=== PATIENT | male | born 2000 | race Caucasian/White ===

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

== ENCOUNTER 2019-02-09 20:04 | Emergency (ER) | payer MEDICAID ==
[~2019-02-09] VITALS: Ht 185 cm; Wt 90.0 kg
[~2019-02-09 20:04] MED LIST changes: -CYPR4TAB; +CYPR4TAB41; -OXCA150T; +OXCA150T18
--- NOTE | 2019-02-09 20:12 | ED Chest Pain ---
General Stated Complaint: SOB,CHEST PAIN Source: patient Exam Limitations: no limitations History of Present Illness Date Seen by Provider: Feb 09, 2019 Time Seen by Provider: 20:10 Initial Comments To ER with sudden onset left-sided chest pain shortness of breath that began prior to arrival while rossy his girlfriend's car, he was driving. He was seen by urgent care last week and diagnosed with asthma exacerbation given some pills which may or may not have been prednisone and an inhaler. Inhaler hasn't helped, he states he feels very anxious at this time. Timing/Duration: changing over time Severity/Quality: moderate Location: other (left sternal border fifth intercostal space) Radiation: no radiation ASA po MOLDER CLOSED MOLDS: No NTG SL MOLDER CLOSED MOLDS: No Associated Symptoms: shortness of breath Allergies and Home Medications Allergies Coded Allergies: No Known Drug Allergies (Unverified , 03/07/14) Home Medications Amoxicillin/Potassium Clav 1 Each Tablet, 1 EACH PO BID Prescribed by: BENITEZ DALAL on 03/07/172345 Citalopram Hydrobromide 40 Mg Tablet, 1 TAB PO DAILY, (Reported) Codeine Phos/Acetaminophen 1 Tab Tablet, 1 TAB PO Q6H PRN for PAIN Prescribed by: ISAIAS WESTON on 03/07/142126 Fluticasone Propionate 9.9 Ml Knapp.susp, 2 SPRAYS NS BID Prescribed by: BENITEZ DALAL on 03/07/172345 Methylphenidate Hcl 20 Mg Tablet.sa, 3 TAB PO DAILY, (Reported) Methylprednisolone 4 Mg Tab.ds.pk, 4 MG PO UD Prescribed by: BENITEZ DALAL on 03/07/172345 Quetiapine Fumarate 50 Mg Tablet, 1-3 TAB PO HS, (Reported) Patient Home Medication List Home Medication List Reviewed: Yes Review of Systems Review of Systems Constitutional: see HPI EENTM: No Symptoms Reported Respiratory: See HPI, Shortness of Air Cardiovascular: See HPI, Chest Pain Gastrointestinal: No Symptoms Reported Genitourinary: No Symptoms Reported Musculoskeletal: no symptoms reported Skin: no symptoms reported Psychiatric/Neurological: No Symptoms Reported Endocrine: No Symptoms Reported Past Adqpnel-Zyakrf-Pwtqcr Hx Patient Social History Type Used: Cigarettes, Electronic/Vapor 2nd Hand Smoke Exposure: No Recent Foreign Travel: No Contact w/Someone Who Travel: No Recent Hopitalizations: No Immunizations Up To Date Tetanus Booster (TDap): Unknown Seasonal Allergies Seasonal Allergies: No Past Medical History Surgeries: Yes (L HAND) Orthopedic Respiratory: Yes Asthma Cardiac: No Neurological: No Genitourinary: No Gastrointestinal: No Musculoskeletal: No Endocrine: No HEENT: No Cancer: No Psychosocial: Yes ADD/ADHD, Anxiety, Depression Integumentary: No Blood Disorders: No Physical Exam Vital Signs Vital Signs - First Documented 02/09/19 20:05 Temp 37.1 Pulse 103 Resp 20 B/P (MAP) 159/93 (115) Pulse Ox 100 O2 Delivery Room Air Capillary Refill : Height, Weight, BMI Height: 6'1.00" Weight: 190lbs. oz. 86.134251os; 21.09 BMI Method:Stated General Appearance: No Apparent Distress, WD/WN, Anxious (tachypnea with pursed lip breathing on exhalation, anxious appearing but in no distress vital signs stable lungs are clear) HEENT: PERRL/EOMI, TMs Normal Respiratory: No Accessory Muscle Use, No Respiratory Distress Cardiovascular: Regular Rate, Rhythm, Normal Peripheral Pulses Gastrointestinal: Normal Bowel Sounds, Non Tender, Soft Extremity: Normal Capillary Refill, Normal Inspection Neurologic/Psychiatric: Alert, Oriented x3 Skin: Normal Color, Warm/Dry Progress/Results/Core Measures Results/Orders Lab Results Laboratory Tests Test 02/09/19 20:11 Range/Units White Blood Count 10.3 4.3-11.0 10^3/uL Red Blood Count 5.37 4.35-5.85 10^6/uL Hemoglobin 15.5 13.3-17.7 G/DL Hematocrit 43 40-54 % Mean Corpuscular Volume 79 L 80-99 FL Mean Corpuscular Hemoglobin 29 25-34 PG Mean Corpuscular Hemoglobin Concent 37 H 32-36 G/DL Red Cell Distribution Width 13.0 10.0-14.5 % Platelet Count 293 130-400 10^3/uL Mean Platelet Volume 9.4 7.4-10.4 FL Neutrophils (%) (Auto) 42 42-75 % Lymphocytes (%) (Auto) 48 H 12-44 % Monocytes (%) (Auto) 9 0-12 % Eosinophils (%) (Auto) 1 0-10 % Basophils (%) (Auto) 0 0-10 % Neutrophils # (Auto) 4.3 1.8-7.8 X 10^3 Lymphocytes # (Auto) 4.9 H 1.0-4.0 X 10^3 Monocytes # (Auto) 0.9 0.0-1.0 X 10^3 Eosinophils # (Auto) 0.1 0.0-0.3 10^3/uL Basophils # (Auto) 0.0 0.0-0.1 10^3/uL D-Dimer 0.44 0.00-0.49 UG/ML Sodium Level 142 135-145 MMOL/L Potassium Level 3.0 L 3.6-5.0 MMOL/L Chloride Level 104 98-107 MMOL/L Carbon Dioxide Level 26 21-32 MMOL/L Anion Gap 12 5-14 MMOL/L Blood Urea Nitrogen 14 7-18 MG/DL Creatinine 1.19 0.60-1.30 MG/DL Estimat Glomerular Filtration Rate > 60 BUN/Creatinine Ratio 12 Glucose Level 72 70-105 MG/DL Calcium Level 9.8 8.5-10.1 MG/DL Corrected Calcium 8.5-10.1 MG/DL Total Bilirubin 0.3 0.1-1.0 MG/DL Aspartate Amino Transf (AST/SGOT) 22 5-34 U/L Alanine Aminotransferase (ALT/SGPT) 39 0-55 U/L Alkaline Phosphatase 69 40-136 U/L Troponin I < 0.028 <0.028 NG/ML Total Protein 8.1 6.4-8.2 GM/DL Albumin 4.9 H 3.2-4.5 GM/DL My Orders Orders - ISAIAS WESTON APRN Fibrin Degradation Products (02/09/19 20:09) Troponin I (02/09/19 20:09) Cbc With Automated Diff (02/09/19 20:09) Comprehensive Metabolic Panel (02/09/19 20:09) Ekg Tracing (02/09/19 20:09) Chest 1 View, Ap/Pa Only (02/09/19 20:09) Ed Iv/Invasive Line Start (02/09/19 20:09) Lorazepam Injection (Ativan Injection) (02/09/19 20:15) Ketorolac Injection (Toradol Injection) (02/09/19 20:45) Potassium Chloride (Tablet) (Klor Con Ta (02/09/19 20:45) Albuterol/Ipra Inhalation Soln (Duoneb I (02/09/19 21:00) Svn Small Volume Nebulizer (02/09/19 20:57) Medications Given in ED Current Medications Medications Dose Ordered Sig/Tameka Route Start Time Stop Time Status Last Admin Dose Admin Ketorolac Tromethamine 30 mg ONCE ONCE IVP 02/09/19 20:45 02/09/19 20:46 DC 02/09/19 20:55 30 MG Potassium Chloride 40 meq ONCE ONCE PO 02/09/19 20:45 02/09/19 20:46 DC 02/09/19 20:55 40 MEQ Vital Signs/I&O 02/09/19 02/09/19 20:05 20:05 Temp 37.1 Pulse 103 Resp 20 B/P (MAP) 159/93 (115) Pulse Ox 100 O2 Delivery Room Air Room Air Departure Impression Primary Impression: Anxiety Additional Impressions: Hypokalemia Pleuritic chest pain Disposition: HOME, SELF-CARE Condition: Stable Departure-Patient Inst. Decision time for Depature: 20:46 Referrals: [facility] [place] (PCP/Family) Primary Care Physician Patient Instructions: Hypokalemia (DC), Pleuritic Chest Pain Add. Discharge Instructions: 1. Return to ER for any concerns 2. Follow-up with your doctor next week 3. Use inhaler 2 puffs every 4 hours as needed for shortness of breath, anti-inflammatories like ibuprofen as needed for pain. ISAIAS WESTON APRN Feb 09, 2019 20:12
[2019-02-09] MEDS ORDERED: LORazepam INJ 2 MG/ML (ATIVAN) VIAL IVP PRN (20:15)
[2019-02-09 20:21] LABS: BASOPHILS % (AUTO) 0 % (0-10); EOSINOPHILS # (AUTO) 0.1 10^3/uL (0.0-0.3); EOSINOPHILS % (AUTO) 1 % (0-10); HEMATOCRIT 43 % (40-54); HEMOGLOBIN 15.5 G/DL (13.3-17.7); LYMPHOCYTES # (AUTO) 4.9 X 10^3 (1.0-4.0); LYMPHOCYTES % (AUTO) 48 % (12-44); MEAN CORPUSCULAR HEMOGLOBIN 29 PG (25-34); MEAN CORPUSCULAR HGB CONC 37 G/DL (32-36); MEAN CORPUSCULAR VOLUME 79 FL (80-99); MEAN PLATELET VOLUME 9.4 FL (7.4-10.4); MONOCYTES # (AUTO) 0.9 X 10^3 (0.0-1.0); MONOCYTES % (AUTO) 9 % (0-12); NEUTROPHILS # (AUTO) 4.3 X 10^3 (1.8-7.8); NEUTROPHILS % (AUTO) 42 % (42-75); PLATELET COUNT 293 10^3/uL (130-400); WHITE BLOOD COUNT 10.3 10^3/uL (4.3-11.0)
[2019-02-09 20:38] LABS: ALANINE AMINOTRANSFERASE 39 U/L (0-55); ALBUMIN 4.9 GM/DL (3.2-4.5); ALKALINE PHOSPHATASE 69 U/L (40-136); BILIRUBIN,TOTAL 0.3 MG/DL (0.1-1.0); BUN/CREATININE RATIO 12; CALCIUM 9.8 MG/DL (8.5-10.1); CARBON DIOXIDE 26 MMOL/L (21-32); CHLORIDE 104 MMOL/L (98-107); CREATININE SERUM 1.19 MG/DL (0.60-1.30); GFR ESTIMATED > 60; GLUCOSE 72 MG/DL (70-105); SODIUM 142 MMOL/L (135-145); TOTAL PROTEIN 8.1 GM/DL (6.4-8.2)
--- NOTE | 2019-02-09 20:38 | Diagnostic Imaging Report ---
EXAM: CHEST 1 VIEW, AP/PA ONLY INDICATION: Chest pain. COMPARISON: None. FINDINGS: Normal heart size and pulmonary vascularity. No dense consolidation, pleural effusion or pneumothorax. No acute osseous findings. IMPRESSION: Negative chest. Dictated by: Dictated on workstation # [id number]
[2019-02-09] MEDS ORDERED: KETOROLAC 30 MG/ML VIAL IVP ONE (20:45)
[2019-02-09] MEDS ORDERED: KCL 10 MEQ TAB (MICRO K) PO ONE (20:45)
[2019-02-09] MEDS ORDERED: RT-ALBUTEROL/IPRATROPIUM 3 ML (DUONEB) VIAL INH ONE (21:00)
[2019-02-09 21:38] VITALS: BP 159/93
== END 2019-02-09 21:42 | disposition home or self-care (01) ==
LOC: EDUNIT# 20:04 → ER 20:05
DX: F41.9 Anxiety disorder, unspecified (principal); E87.6 Hypokalemia; R09.1 Pleurisy; J45.909 Unspecified asthma, uncomplicated; F90.9 Attention-deficit hyperactivity disorder, unspecified type; F32.9 Major depressive disorder, single episode, unspecified; Z79.51 Long term (current) use of inhaled steroids; Z79.52 Long term (current) use of systemic steroids
CPT/HCPCS: 36415; 71045; 80053; 84484; 85025; 85379; 93005